=== PATIENT | male | born 1995 | race Caucasian/White ===

== ENCOUNTER 2017-01-16 12:23 | Emergency (ER) | payer OTHER ==
[~2017-01-16] VITALS: Ht 165.1 cm; Wt 66.8 kg
[2017-01-16 14:45] VITALS: BP 117/66
== END 2017-01-16 15:18 | disposition home or self-care (01) ==
LOC: EMS 12:29
DX: F32.9 Major depressive disorder, single episode, unspecified (principal); F12.90 Cannabis use, unspecified, uncomplicated; Z91.013 Allergy to seafood
CPT/HCPCS: 99285